=== PATIENT | male | born 1985 | race African-American/Black ===

== ENCOUNTER 2020-05-05 02:48 | Emergency (ER) | payer SELFPAY ==
[2020-05-05] MEDS ORDERED: NORMAL SALINE 1000 ML 1,000 ML IV ONE (03:20)
--- NOTE | 2020-05-05 03:23 | ER Document Report ---
ED General - General Stated Complaint: POSSIBLE OVERDOSE Time Seen by Provider: 05/05/20 03:11 Cannot obtain history due to: Altered mental status - [facility] Notes: Patient is a 34-year-old male who was brought in by EMS for possible overdose. Per EMS, patient was in a cab when he started jerking around and acting bizarre. The cable splicer helper called 911, this responded and patient was acting sedated by the time I saw him. They reported pinpoint pupils. Per nursing, she was told by EMS that they gave the patient Narcan and he became alert and then became aggressive and violent. EMS then gave the patient versed. Here in the ED, binta abad is snoring in bed with stable vital signs. He is minimally aroused with sternal rub. Further history was unable to be obtained due to his altered mental status. Past Medical History - General Cannot obtain history due to: Altered mental status - Social History Smoking Status: Unknown if Ever Smoked Family History: Reviewed & Not Pertinent Review of Systems - Review of Systems -: Yes ROS unobtainable due to patient's medical condition Physical Exam - Vital signs Vitals: Temp 97.2 F 05/05/20 02:48 - Notes Notes: PHYSICAL EXAMINATION: VITALS: Vitals reviewed and within normal limits. GENERAL: Snoring, young male laying in the bed. Is in no apparent distress. HEAD: Atraumatic, normocephalic. EYES: Pupils equal, round, and reactive to light, extraocular movements intact, sclera anicteric, conjunctiva are normal. ENT: Nares patent. Moist mucous membranes. LUNGS: Breath sounds clear to auscultation bilaterally and equal. No wheezes rales or rhonchi. No respiratory depression. HEART: Regular, rate, and rhythm without murmurs. ABDOMEN: Soft, normoactive bowel sounds. No masses appreciated. EXTREMITIES: No pitting or edema. No cyanosis. NEUROLOGICAL: GCS 7. Patient responds and withdraws from painful stimuli. No speech, but incomprehensible sounds. SKIN: Warm, Dry, normal turgor, no rashes or lesions noted. Course - Re-evaluation Re-evalutation: Patient is a 34-year-old male who was brought in by EMS for possible overdose. Per EMS, he was given Narcan and Versed in the field. 05/05/20 03:18 Patient initially assessed. He has no respiratory depression with O2 saturations in the >98%. GCS of 7 but patient was given versed in the field by EMS. I will closely monitor the patient. 1L of IVF ordered. CBC unremarkable with a normal limits. AST elevated at 156 and ALT elevated at 100. Alcohol elevated at 226 with negative salicylates and acetaminophen. Chest x-ray negative. Head CT negative. 05/05/20 07:23 Patient reassessed. He is awake and talking. He denies any pain, nausea, or any other complaints. He states he was out drinking at a bar tonight but denies any drug use. He reports that he is able to get a ride. Patient presents with acute alcohol intoxication without any additional acute complaints. Admits to heavy alcohol use today. No evidence of trauma on exam. Patient was monitored in the emergency department until they were clinically sober. Able to ambulate and talking clear sentences prior to discharge. Tolerating oral intake without difficulty. The patient has been instructed to seek help for alcohol detoxification. Will discharge and return precautions and follow-up recommendations. - Vital Signs Vital signs: Temp Pulse Resp BP Pulse Ox 97.2 F 18 99/57 L 100 05/05/20 02:48 05/05/20 06:31 05/05/20 07:01 05/05/20 07:01 - Laboratory Result Diagrams: 05/05/20 04:15 05/05/20 04:15 Laboratory results interpreted by me: 05/05/20 05/05/20 04:15 04:15 RDW 14.4 H Glucose 112 H AST 156 H ALT 100 H Salicylates < 1.0 L Acetaminophen < 10 L - EKG Interpretation by Me Additional EKG results interpreted by me: Sinus rhythm with a rate of 78. QTc 461. Normal axis. No T wave inversions or ST segment changes in consecutive leads. Discharge - Discharge Clinical Impression: Alcohol intoxication Qualifiers: Complication of substance-induced condition: uncomplicated Qualified Code(s): F 10920 - Alcohol use, unspecified with intoxication, uncomplicated Altered mental status Qualifiers: Altered mental status type: unspecified Qualified Code(s): R41.82 - Altered mental status, unspecified Condition: Stable Disposition: HOME, SELF-CARE Additional Instructions: You were seen in the emergency department today for being drunk. Being seen in the emergency department after drinking alcohol is a serious indicator that you have a problem with alcohol. You should seek help with the attached resources for your problem drinking. Please return to the emergency room immediately if you experience any concerning symptoms including high fevers, severe headache, chest pain, difficulty breathing, abdominal pain, slurred speech, numbness or weakness in your arms or legs, or any other symptom that concerns you.
--- NOTE | 2020-05-05 03:58 | RADIOLOGY REPORT (SQ) ---
EXAM DESCRIPTION: X-ray single view chest. CLINICAL HISTORY: 34 years Male, altered mental status COMPARISON: None. TECHNIQUE: Single portable x-ray view of the chest performed on 05/05/2020 at 3:31 AM FINDINGS: The lungs are well expanded and are clear. There is no evidence of a pneumothorax. The cardiac silhouette is prominent and may be accentuated by the portable technique. The mediastinal contours are normal. No acute osseous abnormality is identified. No focal soft tissue abnormalities are seen. Lines and tubes: None. IMPRESSION: No evidence of acute intrathoracic disease.
[2020-05-05 04:41] LABS: ABSOLUTE LYMPHOCYTES (AUTO) 1.9 10^3/uL (0.5-4.7); ABSOLUTE MONOCYTES (AUTO) 0.5 10^3/uL (0.1-1.4); ABSOLUTE NEUT (AUTO) 4.2 10^3/uL (1.7-8.2); BASOPHILS % (AUTO) 0.3 % (0-2); EOSINOPHILS % (AUTO) 0.6 % (0-6); HEMATOCRIT 41.5 % (37.9-51.0); HEMOGLOBIN 14.4 g/dL (13.5-17.0); LYMPHOCYTES % (AUTO) 28.6 % (13-45); MEAN CORPUSCULAR HEMOGLOBIN 30.8 pg (27.0-33.4); MEAN CORPUSCULAR HGB CONC 34.7 g/dL (32.0-36.0); MEAN CORPUSCULAR VOLUME 89 fl (80-97); MONOCYTES % (AUTO) 7.6 % (3-13); PLATELET COUNT 163 10^3/uL (150-450); RED BLOOD COUNT 4.68 10^6/uL (4.35-5.55); RED CELL DISTRIBUTION WIDTH 14.4 % (11.5-14.0); SEGMENTED NEUTROPHILS % (AUTO) 62.9 % (42-78); TOTAL CELLS COUNTED % (AUTO) 100 %; WHITE BLOOD COUNT 6.7 10^3/uL (4.0-10.5)
[2020-05-05 05:13] LABS: ACETAMINOPHEN < 10 ug/mL (10-30); ALBUMIN 4.6 g/dL (3.5-5.0); ALCOHOL 226 mg/dL (NONE DETECTED); ALKALINE PHOSPHATASE 67 U/L (38-126); ANION GAP 16 (5-19); ASPARTATE AMINO TRANSFERASE 156 U/L (17-59); BILIRUBIN,DIRECT 0.3 mg/dL (0.0-0.4); BILIRUBIN,TOTAL 0.6 mg/dL (0.2-1.3); BLOOD UREA NITROGEN 12 mg/dL (7-20); CALCIUM 9.5 mg/dL (8.4-10.2); CARBON DIOXIDE 25 mmol/L (22-30); CHLORIDE 102 mmol/L (98-107); GLUCOSE 112 mg/dL (75-110); POTASSIUM 3.7 mmol/L (3.6-5.0); SALICYLATE < 1.0 mg/dL (2.0-20.0); TOTAL PROTEIN 7.7 g/dL (6.3-8.2)
--- NOTE | 2020-05-05 06:31 | RADIOLOGY REPORT (SQ) ---
EXAM: CT head without IV contrast CLINICAL DATA: altered mental status DUE TO POSSIBLE OD. TECHNICAL DATA: Multiple axial CT images of the brain were performed followed by sagittal and coronal reconstructed images. The CT study is performed according to ALARA (as low as reasonably achievable) or ALARA/IMAGE GENTLY, with automatic adjustment of mA and/or kV according to patient size. Performed on: 05/05/2020 03:21 Comparisons: None. FINDINGS: Brain: There is no evidence of mass, acute mass effect or midline shift. There are no acute extra-axial fluid collections. There is no evidence of acute intracranial hemorrhage. The cerebral sulci and ventricles are normal in size and configuration..There are no focal abnormal areas of increased or decreased attenuation. Paranasal Sinuses and Mastoids: There is mild mucosal thickening of the maxillary sinuses. The mastoid air cells are clear. Orbits: The orbital contents are grossly unremarkable. Bones: No acute osseous abnormalities are identified. Soft Tissues: No focal soft tissue abnormalities are identified. IMPRESSION: There is no evidence of acute intracranial pathology.
--- NOTE | 2020-05-05 09:21 | ER Document Report ---
Doctor's Note Notes: 05/05/20 09:18 Patient assessed just now. Patient is standing at the doorway asking if he can leave. Patient appears stable. He is not slurring his words. He is able to ambulate without assistance and can do it steadily. He has been standing at the door for approximately 25 to 30 minutes asking to leave. He is getting verbally confrontational with security. The decision had been made whether to hold the patient against his will further or let the patient go in a taxicab. I feel it is in the best interest of the patient and staff that patient be allowed to call a cab and be taken to his house. Security is going to escort the patient into the cab. Patient's blood alcohol was elevated approximately 5 hours ago but should not be significantly improved. Patient is capable of making his own judgments and decisions at this time. He is alert and oriented x4 and answering questions appropriately.
[2020-05-05 09:39] VITALS: BP 96/61
--- NOTE | 2020-05-05 19:46 | EKG REPORT ---
SEVERITY:- NORMAL ECG - SINUS RHYTHM : Confirmed by: Camilo Garcia 05-May-2020 19:45:41
== END 2020-05-05 09:39 | disposition home or self-care (01) ==
LOC: ER 02:48
DX: F10.920 Alcohol use, unspecified with intoxication, uncomplicated (principal); R41.82 Altered mental status, unspecified
CPT/HCPCS: 93005; 99285; 96360; 36415; 80307 ×3; 85025; 80053; 71045; 70450; 93010; J7030